=== PATIENT | female | born 1930 | race Caucasian/White ===

== ENCOUNTER 2017-03-29 15:11 | Emergency (ER) | payer OTHER ==
[~2017-03-29] VITALS: Ht 152.4 cm; Wt 50.1 kg
[2017-03-29 15:21] VITALS: BP 115/75; Ht 152.4 cm; Wt 50.1 kg
== END 2017-03-29 16:30 | disposition home or self-care (01) ==
LOC: ED 15:11
DX: B02.9 Zoster without complications (principal); F03.90 Unspecified dementia, unspecified severity, without behavioral disturbance, psychotic disturbance, mood disturbance, and anxiety; I10 Essential (primary) hypertension